=== PATIENT | female | born 1985 | race American Indian/Alaskan Native ===

== ENCOUNTER 2018-03-21 17:21 | Emergency (ER) | payer MEDICAID, OTHER ==
[2018-03-21] MEDS ORDERED: Acetaminophen/HYDROcodone 325-5 MG Tab PO ONE (17:50)
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
[2018-03-21] MEDS ORDERED: Sodium Chloride 0.9% 1,000 ML IV ONE (18:38)
[2018-03-21] MEDS ORDERED: cefTRIAXone 1,000 MG VIAL IVPUSH ONE (19:27)
[2018-03-21 19:57] VITALS: BP 106/60
== END 2018-03-21 19:40 | disposition home or self-care (01) ==
LOC: FB.ED 17:21
DX: N12 Tubulo-interstitial nephritis, not specified as acute or chronic (principal); M54.5 Low back pain; G89.29 Other chronic pain; D69.6 Thrombocytopenia, unspecified; Z88.5 Allergy status to narcotic agent
CPT/HCPCS: 36415; 80048; 80305-QW; 81001; 83605; 85025; 87040; 87077; 87086; 87088; 87186; 93005; 96361; 96374; 99283; A9270-GY; J0696; J7030

== ENCOUNTER 2018-06-30 09:57 | Emergency (ER) | payer MEDICAID, OTHER ==
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
[2018-06-30 19:13] VITALS: BP 109/75
== END 2018-06-30 11:36 | disposition home or self-care (01) ==
LOC: FB.ED 09:57
DX: S82.202A Unspecified fracture of shaft of left tibia, initial encounter for closed fracture (principal); Z88.5 Allergy status to narcotic agent; Z79.899 Other long term (current) drug therapy; X58.XXXA Exposure to other specified factors, initial encounter
CPT/HCPCS: 99283

== ENCOUNTER 2023-01-25 16:17 | Emergency (ER) | payer MEDICAID, OTHER ==
[2023-01-25 18:39] LABS: BILIRUBIN,URINE NEGATIVE (NEGATIVE); GLUCOSE,URINE NORMAL (NORMAL); KETONES,URINE NEGATIVE (NEGATIVE); LEUKOCYTE ESTERASE,URINE LARGE (NEGATIVE); NITRITE,URINE POSITIVE (NEGATIVE); OCCULT BLOOD,URINE MODERATE (NEGATIVE); PROTEIN,URINE NEGATIVE (NEGATIVE); UROBILINOGEN,URINE NORMAL (NEGATIVE)
[2023-01-25 18:41] LABS: APPEARANCE,URINE CLOUDY (CLEAR); BACTERIA,URINE MANY (NS); COLOR,URINE YELLOW (YELLOW); SQUAMOUS EPITHELIAL CELLS,UR MODERATE (NS,R,O); WBC,URINE 75-100 (0-5)
[2023-01-25 19:53] VITALS: BP 95/72; PULSE 115
== END 2023-01-25 18:23 | disposition home or self-care (01) ==
LOC: FB.ED 16:17
DX: Z46.6 Encounter for fitting and adjustment of urinary device (principal); R32 Unspecified urinary incontinence; M25.551 Pain in right hip; G89.29 Other chronic pain; Z88.5 Allergy status to narcotic agent
CPT/HCPCS: 51702; 81001; 87086; 87088; 87186; 99283